=== PATIENT | female | born 1980 | race Caucasian/White ===

== ENCOUNTER 2017-09-09 14:43 | Emergency (ER) | payer SELFPAY ==
[~2017-09-09] VITALS: Ht 182.9 cm; Wt 113.4 kg
[2017-09-09 14:55] VITALS: BP 146/108
[2017-09-09] MEDS ORDERED: IV NORMAL SALINE 1,000ML 1,000 ML IV ONE (15:00)
[2017-09-09 15:37] LABS: BASO # 0.1 x10^3/uL (0.0-0.2); BASO % 1 % (0-3); EOS # 0.4 x10^3/uL (0.0-0.7); EOS % 6 % (0-3); HEMATOCRIT 40.5 % (36.0-47.0); LYMPH # 1.4 x10^3/uL (1.0-4.8); LYMPH % 19 % (24-48); MEAN CORPUSCULAR HEMOGLOBIN 30 pg (25-35); MEAN CORPUSCULAR HGB CONC 35 g/dL (31-37); MEAN CORPUSCULAR VOLUME 86 fL (79-100); MONO # 0.5 x10^3/uL (0.0-1.1); MONO % 7 % (0-9); NEUT # 4.9 x10^3uL (1.8-7.7); NEUT % 67 % (31-73); PLATELET COUNT 358 x10^3/uL (140-400); RED CELL DISTRIBUTION WIDTH 14.6 % (11.5-14.5); WHITE BLOOD COUNT 7.3 x10^3/uL (4.0-11.0)
[2017-09-09] MEDS ORDERED: ONDANSETRON PF 4 MG/2 ML VIAL. IV ONE ×2 (15:45→17:00)
[2017-09-09 15:46] LABS: CALCIUM 9.2 mg/dL (8.5-10.1); CREATININE 1.1 mg/dL (0.6-1.0); GFR 55.6; POTASSIUM 3.6 mmol/L (3.5-5.1)
--- NOTE | 2017-09-09 15:52 | ED.ADGEN ---
Past History Past Medical History: Kidney Stones, Migraines Past Surgical History: Appendectomy, Cholecystectomy, Hysterectomy Alcohol Use: None Drug Use: None Adult General HPI HPI Patient is a 36 year old female who presents with right flank pain. Patient is an otherwise healthy 36-year-old female. She has a prior history of kidney stones. She reports having about 2 per year. She has never needed intervention. She has been able to pass all of her stones. Today, she presents to the ER complaining of pain over the right flank but does feel similar to prior renal stone pain. She has had some nausea associated with the pain as well. Pain started last night and became worse today so she came to the hospital. She denies fever. She denies any other urinary symptoms. Review of Systems Review of Systems Constitutional: Denies fever Eyes: eye complaints HENT: Denies nasal congestion Respiratory: Denies cough or shortness of breath Cardiovascular: No additional information GI: Denies abdominal pain : Denies dysuria or hematuria Musculoskeletal: Denies back pain Integument: Denies rash Neurologic: Denies headache, All other systems were reviewed and found to be within normal limits, except as documented in this note. Current Medications Current Medications Current Medications Medications (Trade) Dose Ordered Sig/Kali Start Time Stop Time Status Last Admin Dose Admin Fentanyl Citrate (Fentanyl 2ml Vial) 75 mcg 1X ONCE 09/09/17 15:45 09/09/17 15:46 DC 09/09/17 16:38 75 MCG Morphine Sulfate (Morphine 4mg Syringe) 6 mg 1X ONCE 09/09/17 17:00 09/09/17 17:01 DC 09/09/17 16:39 6 MG Ondansetron HCl (Zofran) 4 mg 1X ONCE 09/09/17 17:00 09/09/17 17:01 DC 09/09/17 16:38 4 MG Sodium Chloride 1,000 ml @ 1,000 mls/hr 1X ONCE 09/09/17 15:00 09/09/17 15:59 DC 09/09/17 16:39 1,000 MLS/HR Allergies Allergies Allergies Coded Allergies Type Severity Reaction Last Updated Verified ketorolac Allergy Unknown 09/09/17 Yes metoclopramide Allergy Unknown 09/09/17 Yes prochlorperazine Allergy Unknown 09/09/17 Yes Physical Exam Physical Exam Constitutional: Well developed, well nourished, patient seems to be in significant distress 2/2 pain. Antalgic movements HENT: Normocephalic, atraumatic, bilateral external ears normal, oropharynx moist Eyes: PERRLA, EOMI, conjunctiva normal Neck: Normal range of motion, no tenderness, supple Cardiovascular:Heart rate regular rhythm Lungs & Thorax: Bilateral breath sounds clear Abdomen: Bowel sounds normal, soft, no tenderness Skin: Warm, dry Back: + right CVA tenderness Extremities: No edema Neurologic: Alert and oriented X 3 Psychologic: Affect normal Current Patient Data Vital Signs Vital Signs Date Time Temp Pulse Resp B/P (MAP) Pulse Ox O2 Delivery O2 Flow Rate FiO2 09/09/17 14:55 98.5 127 24 100 Room Air Lab Results Laboratory Tests Test 09/09/17 15:10 09/09/17 15:55 White Blood Count 7.3 x10^3/uL (4.0-11.0) Red Blood Count 4.70 x10^6/uL (3.50-5.40) Hemoglobin 14.0 g/dL (12.0-15.5) Hematocrit 40.5 % (36.0-47.0) Mean Corpuscular Volume 86 fL (79-100) Mean Corpuscular Hemoglobin 30 pg (25-35) Mean Corpuscular Hemoglobin Concent 35 g/dL (31-37) Red Cell Distribution Width 14.6 % (11.5-14.5) H Platelet Count 358 x10^3/uL (140-400) Neutrophils (%) (Auto) 67 % (31-73) Lymphocytes (%) (Auto) 19 % (24-48) L Monocytes (%) (Auto) 7 % (0-9) Eosinophils (%) (Auto) 6 % (0-3) H Basophils (%) (Auto) 1 % (0-3) Neutrophils # (Auto) 4.9 x10^3uL (1.8-7.7) Lymphocytes # (Auto) 1.4 x10^3/uL (1.0-4.8) Monocytes # (Auto) 0.5 x10^3/uL (0.0-1.1) Eosinophils # (Auto) 0.4 x10^3/uL (0.0-0.7) Basophils # (Auto) 0.1 x10^3/uL (0.0-0.2) Sodium Level 138 mmol/L (136-145) Potassium Level 3.6 mmol/L (3.5-5.1) Chloride Level 100 mmol/L (98-107) Carbon Dioxide Level 31 mmol/L (21-32) Anion Gap 7 (6-14) Blood Urea Nitrogen 8 mg/dL (7-20) Creatinine 1.1 mg/dL (0.6-1.0) H Estimated GFR (Cockcroft-Gault) 55.6 Glucose Level 247 mg/dL (70-99) H Calcium Level 9.2 mg/dL (8.5-10.1) Urine Collection Type Unknown Urine Color Yellow Urine Clarity Hazy Urine pH 6.0 Urine Specific [place] 1.020 Urine Protein Neg (NEG-TRACE) Urine Glucose (UA) 500 mg/dL (NEG) Urine Ketones (Stick) Trace mg/dL (NEG) Urine Blood Large (NEG) Urine Nitrite Neg (NEG) Urine Bilirubin Neg (NEG) Urine Urobilinogen Dipstick 0.2 mg/dL (0.2 mg/dL) Urine Leukocyte Esterase Neg (NEG) Urine RBC >40 /HPF (0-2) Urine WBC Occ /HPF (0-4) Urine Squamous Epithelial Cells Mod /LPF Urine Bacteria Few /HPF (0-FEW) Urine Test Negative (NEG) EKG EKG [] Radiology/Procedures Radiology/Procedures Right kidney: The right kidney is seen with no hydronephrosis and measures 13.6 cm in length. Urinary bladder: The urinary bladder appears normal with bilateral ureteral jets. Impression: Negative examination. Course & Med Decision Making Course & Med Decision Making Pertinent Labs and Imaging studies reviewed. (See chart for details) Patient is seen and examined with symptoms that are suspicious for recurrent renal lithiasis. The patient has had many CT scans in the past. Today, we will give IV fluids, check urine and order ultrasound examination of the right kidney. Patient states she has an allergy to Toradol that causes her throat to swell so fentanyl was ordered for pain. Ultrasound was completed and did not reveal hydronephrosis. Urinalysis revealed hematuria. The patient's presentation is consistent with kidney stones. She has a prior history of the same and states that this feels identical. Every attempt is made today to avoid additional CT scan because she has had some any previously. Clinically, the patient likely has renal lithiasis. I discussed with her that we could not entirely rule out a large stone without CT scan and she understands the risks of not pursuing this imaging modality. Plan is for discharge home. She is feeling much improved after medications were given in the ER. She will be given some Percocet for pain at home. Opiate precautions are discussed. She is also given Zofran for nausea. Patient is agreeable to the plan of care. She will return to the ER for any new or worsening symptoms. Final Impression Final Impression Flank Pain Kidney Stone Dragcatracho Disclaimer Dragon Disclaimer This electronic medical record was generated, in whole or in part, using a voice recognition dictation system. NARESH WILLIAM DO Sep 09, 2017 15:52
--- NOTE | 2017-09-09 15:58 | RAD ---
Renal ultrasound right complete unilateral History: Pain and clinical concern for right-sided obstructive uropathy Sonographic examination of the right kidney and bladder was performed and multiple static images were obtained. Right kidney: The right kidney is seen with no hydronephrosis and measures 13.6 cm in length. Urinary bladder: The urinary bladder appears normal with bilateral ureteral jets. Impression: Negative examination. Electronically signed by: Brooks Chester III, MD (09/09/2017 3:55 PM) [id number]
[2017-09-09 16:35] LABS: CLARITY,URINE HAZY; COLOR,URINE YELLOW
[2017-09-09 16:36] LABS: BACTERIA,URINE FEW /HPF (0-FEW); BILIRUBIN,URINE NEG (NEG); GLUCOSE,URINE 500 mg/dL (NEG); NITRITE,URINE NEG (NEG); RBC,URINE >40 /HPF (0-2); SQUAMOUS EPITHELIAL CELL,UR MOD /LPF; UROBILINOGEN,URINE 0.2 mg/dL (0.2 mg/dL); WBC,URINE OCC /HPF (0-4)
[2017-09-09] MEDS ORDERED: MORPHINE SULFATE 4 MG/ML DISP.SYRIN. IV ONE (17:00)
[2017-09-09 17:04] LABS: U PREG PATIENT NEGATIVE (NEG)
[2017-09-09] MEDS ORDERED: ONDA4TAB7 PO (17:51)
[2017-09-09] MEDS ORDERED: OXYC-323 PO (17:51)
== END 2017-09-09 17:52 | disposition home or self-care (01) ==
LOC: ER 14:43
DX: N20.0 Calculus of kidney (principal); Z87.442 Personal history of urinary calculi; G43.909 Migraine, unspecified, not intractable, without status migrainosus; Z90.49 Acquired absence of other specified parts of digestive tract; Z90.710 Acquired absence of both cervix and uterus; Z88.8 Allergy status to other drugs, medicaments and biological substances
CPT/HCPCS: 36415; 76775; 80048; 81001; 81025; 85025; 96374; 96375; 99285; J2270; J2405; J3010; J7030